=== PATIENT | male | born 1995 | race Caucasian/White ===

== ENCOUNTER 2016-06-08 02:32 | Emergency (ER) | payer BC ==
[2016-06-08 02:37] VITALS: BP 138/78; PULSE 99; RESP 20; TEMP 98.6; O2SAT 97
--- NOTE | 2016-06-08 02:48 | EDPHY ---
H & P Stated Complaint: left ear pain Time Seen by Provider: 06/08/16 02:42 HPI/ROS: Chief Complaint: Left ear pain HPI: 20-year-old male with a history recurrent ear infections presenting complaining of left ear pain for the last day. Symptoms are similar to prior infections. Patient states that he tends to get infection but every 3 months. He has not seen an ear nose and throat doctor. No fevers or chills. No headache. He has not taken any medications for this. He is presenting this morning hoping to get some antibiotics to "nip this in the bud". ROS: 10 point Review of Systems is negative except as noted in the HPI. PMH: Recurrent otitis media Social History: No smoking, no alcohol, no recreational drug use Family History: non-contributory Physical Exam: Gen: Awake, Alert, No Distress HEENT: Ears: Left tympanic membrane is erythematous and bulging with an effusion. It ear canals are clear bilaterally. Right ear is normal Nose: no rhinorrhea Eyes: PERRLA, EOMI Mouth: Moist mucosa Neck: Supple, no JVD, no lymphadenopathy Skin: no rash Neuro: CN II-XII intact, Sensation grossly intact, Strength 5/5 in bilateral upper and lower extremities - Personal History Current Tetanus Diphtheria and Acellular Pertussis (TDAP): Yes - Medical/Surgical History Hx Asthma: No Hx Chronic Respiratory Disease: No Hx Diabetes: No Hx Cardiac Disease: No Hx Renal Disease: No Hx Cirrhosis: No Hx Alcoholism: No Hx HIV/AIDS: No Hx Splenectomy or Spleen Trauma: No - Social History Smoking Status: Never smoked Constitutional: Initial Vital Signs Temperature (C) 37 C 06/08/16 02:35 Heart Rate 99 06/08/16 02:35 Respiratory Rate 20 06/08/16 02:35 Blood Pressure 138/78 H 06/08/16 02:35 O2 Sat (%) 97 06/08/16 02:35 O2 Delivery Mode Room Air Allergies/Adverse Reactions: No Known Allergies Allergy (Unverified 06/08/16 02:35) Home Medications: Medication Instructions Recorded Amoxicillin 500 mg PO TID 7 Days 06/08/16 Departure - Departure Disposition: Home, Routine, Self-Care Clinical Impression: Acute otitis media Condition: Good Instructions: Otitis Media (ED), Amoxicillin (By mouth) Additional Instructions: Follow up with [facility] for evaluation of your reoccurring ear infections. Please take her full course of antibiotics. Referrals: Jessica Sawyer MD [Medical Doctor] - As per Instructions Anuja Zafar MD [Medical Doctor] - As per Instructions Prescriptions: Amoxicillin 500 mg PO TID 7 Days
[2016-06-08] MEDS ORDERED: AMOXICILLIN 250 MG PREPACK#4 BTL TAKEHOME ONE (02:49)
[2016-06-08] MEDS ORDERED: IBUPROFEN 200 MG TAB PO ONE (02:50)
== END 2016-06-08 03:07 | disposition home or self-care (01) ==
DX: H66.92 Otitis media, unspecified, left ear (principal)